=== PATIENT | female | born 1985 | race Caucasian/White ===

== ENCOUNTER 2019-09-05 01:21 | Inpatient (IN) | payer OTHER, SELFPAY ==
[2019-09-05] VITALS (9 sets, daily range): BP systolic 120–138; BP diastolic 66–101; PULSE 80–103; RESP 16–20; TEMP 36.4–36.9; O2SAT 92–100; BMI 17.6
--- NOTE | ~2019-09-05 | XR_ITS ---
EXAMINATION: XR chest 2V DATE: 09/05/2019 03:08 INDICATION: Weakness TECHNIQUE: PA and lateral views of the chest were obtained. COMPARISON: Chest radiograph dated 04/26/2017 FINDINGS: Mild biapical pleural-parenchymal scarring. No new airspace opacities, pulmonary edema, pleural effus ion or pneumothorax. The cardiomediastinal silhouette is normal. Visualized bones and soft tissues ar e unremarkable. IMPRESSION: 1. No acute cardiopulmonary disease. Reviewed, dictated and finalized at location A.
--- NOTE | 2019-09-05 01:30 | ED.RECABL ---
HPI - Recheck/Abnormal Lab/Rx General Chief Complaint: Recheck/Abnormal Lab/Rx Stated Complaint: nausea/weakness Time Seen by Provider: 09/05/19 01:28 Source: patient, RN notes reviewed and old records reviewed Mode of arrival: other Limitations: no limitations History of Present Illness HPI narrative: Pt is a 33 y/o female who presents to the ED with wanting to be re-evaluated. Pt states that she was at [facility] and left AMA because she got into an argument with a nurse. Pt states that she went to [facility] on 09/02/19. Pt was at another hospital before [facility], but she states that she was d/c home. Pt states that she went to [facility] because her mother told her that she did not look well. Pt was admitted for colitis, Methamphetamine usage, and acute bronchitis. Pt left AMA on 09/04/19. Pt had a CT abdomen and pelvis scan that showed colitis, enteritis, and a fatty liver. Pt also had a CPE study done, but the study showed nothing acute other than emphysema. Pt states that she was also tested for the Coronavirus while at [facility]. Pt also reports weakness that began a week ago after overdosing on Meth. Pt was being treated for kidney and liver failure. Pt was prescribed an abx for her diarrhea. Pt states that her LMP was 2.5 months ago d/t the Depo-Provera shot. Pt denies having a PCP. complaint: other (re-evaluation) Initial visit (ago): day(s) (3) Initial visit for: other (overdose) Returns today for: other (re-evaluation) Symptoms since prior visit: no new symptoms Context: other (wanted to be re-evaluated) Associated symptoms: other (diarrhea, weakness) Related Data Allergies Allergy/AdvReac Type Severity Reaction Status Date / Time No Known Allergies Allergy Unknown Unverified 04/26/17 10:11 Review of Systems Review of Systems: All systems reviewed & are unremarkable except as noted in HPI and below Gastrointestinal: Gastrointestinal: Reports diarrhea Neurologic: Reports weakness PMFSH Past Medical History Medical History (Updated 09/05/19 @ 03:47 by Анна Cervantes MD) Overdose Ulcerative colitis Surgical History Surgical History (Updated 09/05/19 @ 02:25 by Ila Calloway) Surgical history unknown Social History Social History (Updated 09/05/19 @ 02:36 by Ila Calloway) Smoking status: Unknown if ever smoked Substance use: current Substance use type: methamphetamine Exam Const: General: no acute distress and alert Orientation/consciousness: patient oriented x3 Eyes: Conjunctivae: conjunctivae normal Pupils: Equal, round and reactive pupils present Chest: Chest palpation & inspection: normal inspection of the chest Cardio: Rate: regular rate Rhythm: regular rhythm Heart sounds: no murmurs GI: Inspection: non-distended GI Palp: No abdominal tenderness and Yes Soft to palpation Auscultation: normal bowel sounds Skin: Other: bruising to left arm Neuro: General: patient oriented x3 and moves all extremities Extrem: General: no pedal edema Psych: Mental Status: mental status grossly normal Affect: normal affect Course Consultations Consultation #1: I have discussed case with Dr Kristian goff who agrees to place in observation. She request patient to be given magnesium 4 g along with the potassium. She also request to continue antibiotics patient was on at [facility] for colitis Date: 09/05/19 Time: 03:42 Vital Signs Vital signs: Vital Signs Temperature 98.4 F 09/05/19 01:24 Pulse Rate 100 09/05/19 01:24 Respiratory Rate 16 09/05/19 01:24 Blood Pressure 132/81 09/05/19 01:24 Pulse Oximetry 100 09/05/19 01:24 Temperature 98.4 F 09/05/19 01:24 Pulse Rate 87 09/05/19 04:37 Respiratory Rate 20 09/05/19 04:37 Blood Pressure 125/87 09/05/19 04:37 Pulse Oximetry 100 09/05/19 04:37 MDM - Recheck/Abnormal Lab/Rx Medical Records Attestation: I reviewed the patient's medical records. Medical records narrative: I reviewed records sent from [facility]
--- NOTE | 2019-09-05 01:47 | PC.NURSE ---
[place] contacted at [facility] and release on information form faxed.
[2019-09-05 02:06] LABS: Basophils Absolute Auto 0.1 K/mm3 (0.0-0.1); Basophils Percent Auto 0.4 % (0.2-1.2); Eosinophils Absolute Auto 0.1 K/mm3 (0-0.3); Hematocrit 33.4 % (37.0-47.0); Hemoglobin 11.4 g/dL (12.0-15.0); Immature Granulocyte Percent A 2.8 % (0-0.5); Lymphocytes Absolute Auto 2.58 K/mm3 (0.9-3.2); Lymphocytes Percent Auto 18.3 % (18.3-44.2); Mean Corpuscular HGB Conc 34.1 g/dl (32-36); Mean Corpuscular Hemoglobin 29.8 pg (26-34); Mean Corpuscular Volume 87.2 fl (80-100); Monocytes Absolute Auto 1.2 K/mm3 (0.1-0.6); Monocytes Percent Auto 8.7 % (2.6-8.5); Neutrophils Absolute Auto 9.7 K/mm3 (1.3-6.7); Neutrophils Percent Auto 68.8 % (45.5-73.1); Platelet Count Result 380 k/mm3 (150-375); Red Blood Count 3.83 M/mm3 (4.2-5.4); Red Cell Distribution Width 13.2 % (11.5-14.5); White Blood Count 14.1 K/mm3 (4.5-10.0)
[2019-09-05 02:18] LABS: Partial Thromboplastin Time 33.4 SECONDS (22.3-36.8); Prothrombin Time 13.1 Seconds (11.1-14.7)
[2019-09-05 02:24] LABS: Ammonia < 9 umol/L (9-30)
[2019-09-05 02:27] LABS: Ethanol < 10 mg/dL (<10); Magnesium 1.6 mg/dL (1.6-2.3)
[2019-09-05 02:30] LABS: Barbiturate Screen Urine Negative (Negative); Benzodiazepines Screen Urine Negative (Negative)
[2019-09-05 02:34] LABS: Cannabinoid Screen Urine Negative (Negative); Cocaine Screen Urine Negative (Negative); Methadone Screen Urine Negative (Negative); Opiate Screen Urine Positive (Negative); Phencyclidine Screen Urine Negative (Negative)
[2019-09-05 02:39] LABS: Alanine Aminotransferase 236 U/L (4-35); Albumin Level 3.3 g/dL (3.5-5.1); Alkaline Phosphatase 82 U/L (38-126); Aspartate Amino Transferase 45 U/L (14-36); Bilirubin,Total 0.2 mg/dL (0.2-1.3); Blood Urea Nitrogen 5 mg/dL (7-17); Calcium 8.8 mg/dL (8.4-10.2); Carbon Dioxide 31 mmol/L (22-30); Chloride 104 mmol/L (98-107); Estimated Glomerular Filt Rate > 60; Glucose 101 mg/dL (65-105); Potassium 2.6 mmol/L (3.4-5.0); Sodium 138 mmol/L (137-145)
--- NOTE | 2019-09-05 02:44 | ECG_ITS ---
Measurements Intervals [place] Rate: 70 P: 61 LA: 133 QRS: -1 QRSD: 107 T: 32 QT: 370 QTc: 400 Interpretive Statements SINUS RHYTHM BORDERLINE T WAVE ABNORMALITY- INFERIOR LEADS BASELINE ARTIFACT- II, III, AVF BORDERLINE ECG Electronically Signed On 09-05-2019 7:22:39 CDT by Tres Max D.O.
[2019-09-05 02:47] LABS: Amphetamine Screen Urine Positive (Negative)
[2019-09-05] MEDS: POTASSIUM CHLORIDE 20 MEQ TABLET 40 MEQ PO (03:01)
[2019-09-05] MEDS: MAGNESIUM SULF 4 GM/WATER100ML 4 GM/100 ML BAG IVPB (04:06)
[2019-09-05] MEDS: metroNIDAZOLE 500 MG/ISO 100ML 500 MG/100 ML BAG 100 MG IVPB (04:12)
--- NOTE | 2019-09-05 04:51 | PC.NURSE ---
This patient, Treva Carcamo, was admitted to 2 Medical Room 253-01. Patient/family oriented to hospital policies and general routines including ID bracelet, bed and alarms, visiting hours, pain management, procedures, bathroom and other care routines, personal items, smoking policy, room service/diet, and visiting hours. Valuables list has been completed. Information on how to activate the Rapid Response Team has been discussed. Patient/Family are encouraged to report perceived risks to care and to ask questions if they do not understand what they are told or what they should do.
[2019-09-05 07:12] LABS: Beta HCG Quantitative < 2.39 mIU/ML
[2019-09-05 08:46] LABS: Basophils Absolute Auto 0.1 K/mm3 (0.0-0.1); Basophils Percent Auto 0.4 % (0.2-1.2); Eosinophils Absolute Auto 0.2 K/mm3 (0-0.3); Eosinophils Percent Auto 1.2 % (0-4.4); Hematocrit 30.9 % (37.0-47.0); Hemoglobin 10.7 g/dL (12.0-15.0); Immature Granulocyte Absolute 0.27 K/mm3 (0.00-0.031); Immature Granulocyte Percent A 2.1 % (0-0.5); Lymphocytes Absolute Auto 2.18 K/mm3 (0.9-3.2); Lymphocytes Percent Auto 16.9 % (18.3-44.2); Mean Corpuscular HGB Conc 34.6 g/dl (32-36); Mean Corpuscular Volume 86.6 fl (80-100); Mean Platelet Volume 8.9 fl (7.4-10.4); Monocytes Absolute Auto 1.1 K/mm3 (0.1-0.6); Monocytes Percent Auto 8.9 % (2.6-8.5); Neutrophils Absolute Auto 9.1 K/mm3 (1.3-6.7); Neutrophils Percent Auto 70.5 % (45.5-73.1); Nucleated Red Blood Cells Perc 0.2 % (0.0-0.2); Platelet Count Result 378 k/mm3 (150-375); Red Blood Count 3.57 M/mm3 (4.2-5.4); White Blood Count 12.9 K/mm3 (4.5-10.0)
[2019-09-05 09:05] LABS: Blood Urea Nitrogen 2 mg/dL (7-17); Calcium 8.1 mg/dL (8.4-10.2); Carbon Dioxide 26 mmol/L (22-30); Chloride 106 mmol/L (98-107); Estimated CRCL calculation 124 ml/min; Estimated Glomerular Filt Rate > 60; Glucose 104 mg/dL (65-105); Magnesium 2.4 mg/dL (1.6-2.3); Potassium 3.4 mmol/L (3.4-5.0); Sodium 136 mmol/L (137-145)
--- NOTE | 2019-09-05 10:06 | PM.SD ---
Same Day Admit/Disch: HPI History of Present Illness Chief complaint: hypokalemia,weakness,colitis Narrative: Treva Carcamo is a 33 year old female with a history of substance abuse and ulcerative colitis, who presented to the ER with complaints of generalized weakness and after her mother told her she appeared pale and did not look very good. The patient was recently at [facility] with symptoms of abdominal pain, nausea, vomiting and diarrhea and was found to have CT abdomen/pelvis findings of colitis involving the entire colon with evidence of nonspecific enteritis and mesenteric adenitis. The patient also had LFT elevations and was found to have hepatomegaly, diffuse fatty liver parenchymal replacement residuals. While there she had a CTA Chest which showed no evidence of PE. The patient left AMA from [facility] on 09/04/2019 with labs showing leukocytosis at 12.4, H&H 10.7/32.1, hypokalemia at 2.9. It does not appear she received any medications upon discharge for her colitis. Today, she reports feeling well. She was feeling slightly weak prior to arrival but denied any abdominal pain, nausea, vomiting, diarrhea, constipation, fever, chills, chest pain, shortness of breath, cough, rhinorrhea, congestion, lightheadedness, dizziness, headache, leg swelling, calf pain, urinary symptoms. Today, she reports severe pain to her bilateral arms from where the IV sites are located. She is feeling well and requesting to leave. She denies any symptoms at all at this time. Code Status: Full Code POA: MotherKayla PCP: None [facility] Past Medical History Medical History Overdose Substance abuse Ulcerative colitis Surgical History Surgical History No significant past surgical history Family History Family History Father Chronic obstructive pulmonary disease Mother Uterine cancer Social History Social History Smoking packs per day: 0.5 Smoking cigarettes per day: 10.0 Years smoked: 16 Smoking pack-years: 8.00 Smoking status: Current every day smoker Tobacco type: cigarettes Alcohol intake: never Substance use: current Substance use type: methamphetamine Living arrangements: alone Additional living arrangements comments: States she is currently living in a motel in [place] alone. Occupation/Education: occupation Additional occupation/education comments: [employer] Gender identity (if verbalized by the patient): Female Spiritual care concerns: No Agree to blood products: Yes Same Day Admit/Disch: Med Pre-admit Medications Home Medications Medication Instructions Recorded Confirmed Type Saccharomyces boulardii [Florastor] 250 mg PO BID 14 Days #28 cap 09/05/19 Rx levofloxacin [Levaquin] 750 mg PO DAILY #10 tablet 09/05/19 Rx metronidazole [Flagyl] 500 mg PO Q8H 10 Days #30 tablet 09/05/19 Rx Exam Narrative: Exam Narrative: General: 33-year-old woman sitting up in bed, anxious. In no acute distress. Skin: Multiple bruises noted to bilateral arms. No jaundice or cyanosis. Good skin turgor. Neck: Full range of motion. Supple. Respiratory: Lungs are clear to auscultation bilaterally. No bony chest wall tenderness. Cardiovascular: The heart has a regular rate and rhythm without murmur. Lower extremities: No lower extremity edema. Distal pulses are easily palpated. No calf tenderness to palpation. Gastrointestinal: The abdomen is soft, nontender and nondistended with active bowel sounds. Psychiatric: Anxious, rapid speech. Neurologic: No focal deficits. Speech is clear. No facial drooping. DS: Data Data Completed and Pending Labs on day of discharge: Labs from last 24 hours 09/05/19 09/05/19 09/05/19
== END 2019-09-05 11:24 | disposition home or self-care (01) | DRG 425 ==
LOC: ANHED 03:47 → ANH2MED 04:08
PROVIDERS: Physician Assistant; Admitting Provider Internal Medicine; Emergency Provider General Practice; Visit Provider Internal Medicine
DX: E87.6 Hypokalemia (principal); K52.9 Noninfective gastroenteritis and colitis, unspecified; K51.90 Ulcerative colitis, unspecified, without complications; J43.9 Emphysema, unspecified; R00.0 Tachycardia, unspecified; F41.9 Anxiety disorder, unspecified; F19.939 Other psychoactive substance use, unspecified with withdrawal, unspecified
CPT/HCPCS: 36415; 71046; 80048; 80053; 80307; 82140; 83735; 84702; 85025; 85610; 85730; 93005; 96365; 96375; 99285; A9270; J1956; J3475; J3480

== ENCOUNTER 2022-05-12 19:46 | Observation (INO) | payer OTHER, SELFPAY ==
[2022-05-12 20:00] VITALS: BP 109/62; PULSE 104
[2022-05-12 20:15] VITALS: BP 105/53; PULSE 110
[2022-05-12 20:30] VITALS: BP 110/66; PULSE 107
[2022-05-12] MEDS: LACTATED RINGERS 1,000 ML 999 ML IV CONT (20:37)
[2022-05-12] MEDS: ONDANSETRON INJ 4 MG/2 ML VIAL IV PUSH (20:38)
[2022-05-12 21:00] LABS: Hematocrit 29.2 % (37.0-47.0); Hemoglobin 9.9 g/dL (12.0-15.0); Mean Corpuscular HGB Conc 33.9 g/dl (32-36); Mean Corpuscular Hemoglobin 29.4 pg (26-34); Mean Corpuscular Volume 86.6 fl (80-100); Platelet Count Result 236 k/mm3 (150-375); Red Blood Count 3.37 M/mm3 (4.2-5.4); Red Cell Distribution Width 12.8 % (11.5-14.5)
[2022-05-12 21:08] LABS: Appearance Urine Cloudy (Clear); Bilirubin Urine Negative (Negative); Blood Urine Trace-intact (Negative); Color Urine Yellow (Yellow); Glucose Urine UA Trace mg/dL (Negative); Ketones Urine Trace mg/dL (Negative); Leukocyte Esterase Ur 2+ LEU/UL (NEGATIVE); Nitrate Urine Negative (Negative); Protein Urine Trace mg/dL (Negative); Specific Grav Ur >= 1.030 (1.001-1.035); Urobilinogen Urine 0.2 mg/dL (<2.0)
[2022-05-12 21:12] LABS: Alanine Aminotransferase 22 U/L (6-35); Albumin Level 3.1 g/dL (3.5-5.1); Alkaline Phosphatase 159 U/L (38-126); Anion Gap 9 mmol/L (8-16); Aspartate Amino Transferase 26 U/L (14-36); Bilirubin,Total 0.1 mg/dL (0.2-1.3); Blood Urea Nitrogen 5 mg/dL (7-17); Calcium 7.8 mg/dL (8.4-10.2); Carbon Dioxide 21 mmol/L (22-30); Chloride 101 mmol/L (98-107); Estimated Glomerular Filt Rate > 60; Glucose 99 mg/dL (65-110); Potassium 3.1 mmol/L (3.4-5.0); Sodium 131 mmol/L (137-145)
[2022-05-12 21:22] LABS: Bacteria Urine 2+ /hpf; Mucus Urine Moderate /lpf; Squamous Epithelial Cell Urine Many /hpf (Few); WBC Urine 51-75 /hpf (0-3)
[2022-05-12 21:25] LABS: Add Urine Microscopic? YES
[2022-05-12 21:42] LABS: Barbiturate Screen Urine Negative (Negative); Benzodiazepines Screen Urine Negative (Negative)
[2022-05-12 22:05] LABS: Opiate Screen Urine Negative (Negative); Phencyclidine Screen Urine Negative (Negative)
[2022-05-12 22:15] LABS: Cannabinoid Screen Urine Negative (Negative); Cocaine Screen Urine Negative (Negative)
[2022-05-12 23:26] LABS: Methadone Screen Urine Negative (Negative)
[2022-05-12 23:42] LABS: Amphetamine Screen Urine Positive (Negative)
--- NOTE | 2022-05-14 07:40 | P.PNOB_ITS ---
OB - Triage/Final Diagnosis Visit Information Comments/Additional reasons for admission: I have assessed the risk for this patient, Treva Carcamo, and determined that she would benefit from observation care. Evaluation Laboratory results: Laboratory Tests 05/12/22 05/12/22 05/12/22 20:30 20:30 20:45 WBC 14.0 H RBC 3.37 L Hgb 9.9 L Hct 29.2 L MCV 86.6 MCH 29.4 MCHC 33.9 RDW 12.8 Plt Count 236 MPV 10.0 Sodium 131 L Potassium 3.1 L Chloride 101 Carbon Dioxide 21 L Anion Gap 9 BUN 5 L Creatinine 0.30 L Estim Creat Clear Calc Not Reportable Estimated GFR > 60 Glucose 99 Calcium 7.8 L Total Bilirubin 0.1 L AST 26 ALT 22 Alkaline Phosphatase 159 H Total Protein 6.0 L Albumin 3.1 L Urine Color Yellow Urine Appearance Cloudy H Urine pH 6.0 Ur Specific [place] >= 1.030 Urine Protein Trace Urine Glucose (UA) Trace H Urine Ketones Trace Ur Blood (Man) Trace-intact Urine Nitrate Negative Urine Bilirubin Negative Urine Urobilinogen 0.2 Ur Leukocyte Esterase 2+ H Urine RBC 11-20 H Urine WBC 51-75 H Ur Squamous Epith Cells Many H Urine Bacteria 2+ H Urine Mucus Moderate H Urine Opiates Screen Urine Methadone Screen Ur Barbiturates Screen Ur Phencyclidine Scrn Ur Amphetamine Screen U Benzodiazepines Scrn Urine Cocaine Screen U Cannabinoids Screen 05/12/22 20:46 WBC RBC Hgb Hct MCV MCH MCHC RDW Plt Count MPV Sodium Potassium Chloride Carbon Dioxide Anion Gap BUN Creatinine Estim Creat Clear Calc Estimated GFR Glucose Calcium Total Bilirubin AST ALT Alkaline Phosphatase Total Protein Albumin Urine Color Urine Appearance Urine pH Ur Specific [place] Urine Protein Urine Glucose (UA) Urine Ketones Ur Blood (Man) Urine Nitrate Urine Bilirubin Urine Urobilinogen Ur Leukocyte Esterase Urine RBC Urine WBC Ur Squamous Epith Cells Urine Bacteria Urine Mucus Urine Opiates Screen Negative Urine Methadone Screen Negative Ur Barbiturates Screen Negative Ur Phencyclidine Scrn Negative Ur Amphetamine Screen Positive A U Benzodiazepines Scrn Negative Urine Cocaine Screen Negative U Cannabinoids Screen Negative Final Diagnosis (1) Substance abuse: Code(s): F19.10 - Other psychoactive substance abuse, uncomplicated Status: Acute (2) UTI in : Code(s): O23.40 - Unspecified infection of urinary tract in , unspecified trimester Status: Acute
== END 2022-05-12 22:00 | disposition home or self-care (01) ==
PROVIDERS: Admitting Provider Obstetrics & Gynecology; Visit Provider Obstetrics & Gynecology
DX: O26.899 Other specified pregnancy related conditions, unspecified trimester (principal); F19.10 Other psychoactive substance abuse, uncomplicated; O23.40 Unspecified infection of urinary tract in pregnancy, unspecified trimester
CPT/HCPCS: 36415; 80053; 80307; 81001; 85027; 96374; G0378; G0379; J2405; J7120

== ENCOUNTER 2022-05-20 19:33 | Inpatient (IN) | payer OTHER, SELFPAY ==
[2022-05-20] VITALS (60 sets, daily range): BP systolic 87–123; BP diastolic 49–85; PULSE 41–135; O2SAT 81–100; BMI 24.5
[2022-05-20] MEDS: AMPICILLIN 2 GM/NS 100 ML 2 GM/100 ML BAG IVPB (20:32)
[2022-05-20] MEDS: LACTATED RINGERS 1,000 ML 999 ML IV CONT (20:32)
[2022-05-20 20:44] LABS: Basophils Percent Auto 0.2 % (0.2-1.2); Eosinophils Absolute Auto 0.1 K/mm3 (0-0.3); Eosinophils Percent Auto 0.5 % (0-4.4); Hematocrit 33.4 % (37.0-47.0); Hemoglobin 11.5 g/dL (12.0-15.0); Immature Granulocyte Absolute 0.09 K/mm3 (0.00-0.031); Immature Granulocyte Percent A 0.6 % (0-0.5); Lymphocytes Absolute Auto 1.94 K/mm3 (0.9-3.2); Lymphocytes Percent Auto 13.5 % (18.3-44.2); Mean Corpuscular HGB Conc 34.4 g/dl (32-36); Mean Corpuscular Hemoglobin 29.9 pg (26-34); Mean Platelet Volume 10.3 fl (7.4-10.4); Monocytes Absolute Auto 0.8 K/mm3 (0.1-0.6); Monocytes Percent Auto 5.3 % (2.6-8.5); Neutrophils Absolute Auto 11.4 K/mm3 (1.3-6.7); Neutrophils Percent Auto 79.9 % (45.5-73.1); Platelet Count Result 302 k/mm3 (150-375); Red Blood Count 3.84 M/mm3 (4.2-5.4); Red Cell Distribution Width 13.1 % (11.5-14.5); White Blood Count 14.3 K/mm3 (4.5-10.0)
--- NOTE | 2022-05-20 20:47 | WPDANESEPP ---
Anes - Eval Pre Procedure Procedure: Labor epidural Date/Time: 05/20/22 20:47 Surgeon: Taya Preop Diagnosis: Abdominal pain with contractions Pre Op Diagnosis: Contractions Patient Data Age: 36 Gender: F Height: Weight: Allergies Allergy/AdvReac Type Severity Reaction Status Date / Time No Known Allergies Allergy Unknown Unverified 04/26/17 10:11 Home Medications Medication Instructions Recorded Confirmed Type Saccharomyces boulardii 250 mg 250 mg PO BID 14 days #28 caps 09/05/19 Rx capsule (Florastor) levofloxacin 750 mg tablet 750 mg PO DAILY #10 tabs 09/05/19 Rx (Levaquin) metronidazole 500 mg tablet 500 mg PO Q8H 10 days #30 tabs 09/05/19 Rx (Flagyl) nitrofurantoin 100 mg PO Q12H 7 days #14 caps 05/12/22 Rx monohydrate/macrocrystals 100 mg capsule (Macrobid) Laboratory Tests 05/20/22 05/20/22 05/20/22 20:34 20:34 20:35 WBC Pending RBC Pending Hgb Pending Hct Pending MCV Pending MCH Pending MCHC Pending RDW Pending Plt Count Pending MPV Pending Immature Gran % (Auto) Pending Neut % (Auto) Pending Lymph % (Auto) Pending [place] % (Auto) Pending Eos % (Auto) Pending Baso % (Auto) Pending Lymph # (Auto) Pending [place] # (Auto) Pending Eos # (Auto) Pending Baso # (Auto) Pending Abs Immat Gran (auto) Pending Absolute Neuts (auto) Pending Absolute Nucleated RBC Pending Nucleated RBC % Pending Sodium Pending Potassium Pending Chloride Pending Carbon Dioxide Pending Anion Gap Pending BUN Pending Creatinine Pending Estim Creat Clear Calc Pending Estimated GFR Pending Glucose Pending Calcium Pending Total Bilirubin Pending AST Pending ALT Pending Alkaline Phosphatase Pending Total Protein Pending Albumin Pending Urine Opiates Screen Urine Methadone Screen Ur Barbiturates Screen Ur Phencyclidine Scrn Ur Amphetamine Screen U Benzodiazepines Scrn Urine Cocaine Screen U Cannabinoids Screen RPR Pending Hep Bs Antigen HIV 1&2 Ab/P24 Ag 4thGn Rubella IgG Antibody 05/20/22 05/20/22 05/20/22 20:35 20:35 20:35 WBC RBC Hgb Hct MCV MCH MCHC RDW Plt Count MPV Immature Gran % (Auto) Neut % (Auto) Lymph % (Auto) [place] % (Auto) Eos % (Auto) Baso % (Auto) Lymph # (Auto) [place] # (Auto) Eos # (Auto) Baso # (Auto) Abs Immat Gran (auto) Absolute Neuts (auto) Absolute Nucleated RBC Nucleated RBC % Sodium Potassium Chloride Carbon Dioxide Anion Gap BUN Creatinine Estim Creat Clear Calc Estimated GFR Glucose Calcium Total Bilirubin AST ALT Alkaline Phosphatase Total Protein Albumin Urine Opiates Screen Pending Urine Methadone Screen Pending Ur Barbiturates Screen Pending Ur Phencyclidine Scrn Pending Ur Amphetamine Screen Pending U Benzodiazepines Scrn Pending Urine Cocaine Screen P
[2022-05-20 20:58] LABS: Alanine Aminotransferase 62 U/L (6-35); Albumin Level 3.3 g/dL (3.5-5.1); Alkaline Phosphatase 259 U/L (38-126); Anion Gap 4 mmol/L (8-16); Aspartate Amino Transferase 65 U/L (14-36); Bilirubin,Total 0.3 mg/dL (0.2-1.3); Blood Urea Nitrogen 6 mg/dL (7-17); Calcium 8.2 mg/dL (8.4-10.2); Carbon Dioxide 24 mmol/L (22-30); Chloride 107 mmol/L (98-107); Estimated Glomerular Filt Rate > 60; Glucose 111 mg/dL (65-110); Potassium 3.2 mmol/L (3.4-5.0); Sodium 135 mmol/L (137-145)
[2022-05-20 21:02] LABS: Barbiturate Screen Urine Negative (Negative); Benzodiazepines Screen Urine Negative (Negative)
[2022-05-20] MEDS: LACTATED RINGERS 1,000 ML 125 ML IV CONT (21:05)
--- NOTE | 2022-05-20 21:11 | LDADM ---
This patient, Treva Carcamo, was admitted to Labor/Delivery/Recovery 105 on 05/20/22 at 19:33. Plans for labor, pain management and were discussed with patient. Patient/family oriented to hospital policies and general routines including ID bracelet, bed and alarms, visiting hours, pain management, procedures, bathroom and other care routines, personal items, smoking policy, room service/diet and guest tray routines, security routines, and visiting hours. Patient/Family are encouraged to report perceived risks to care and to ask questions if they do not understand what they are told or what they should do. See OBIX for further documentation.
[2022-05-20 21:25] LABS: Cannabinoid Screen Urine Negative (Negative); Cocaine Screen Urine Negative (Negative); Methadone Screen Urine Negative (Negative); Opiate Screen Urine Negative (Negative); Phencyclidine Screen Urine Negative (Negative)
[2022-05-20 21:32] LABS: Amphetamine Screen Urine Positive (Negative)
[2022-05-20 21:47] LABS: HIV 1/2 Ab P24 Ag Result Negative (Negative)
[2022-05-20 22:05] LABS: Hepatitis B Surface Antigen Negative (Negative)
[2022-05-20 23:23] LABS: Rubella IgG Antibody > 120.0 IU/ML
[2022-05-21] VITALS (24 sets, daily range): BP systolic 64–166; BP diastolic 48–106; PULSE 66–241; RESP 18–22; TEMP 36.1–36.8; O2SAT 77–100
--- NOTE | 2022-05-21 00:29 | PM.IMHP ---
H&P: HPI History of Present Illness Date/Time: 05/21/22 00:29 Chief Complaint: contractions Narrative: 36 yo A2 here at 33 4/7 wks in active labor. On arrival 5 cm with BBOW. On my arrival . Patient with limited care starting at 23 weeks with provider in [place]. She states she was referred for AMA and 2 vessel cord but did not see specialist yet. Patient states last used narcotics near 23 weeks and last used methamphetamines 2 weeks ago however UDS is + for amphetamines. [facility] Past Medical History Medical History (Updated 05/21/22 @ 00:36 by Aby Bain MD) Anxiety Elective x 2 Methamphetamine abuse No care in current limited late care Substance abuse Ulcerative colitis Vaginal delivery x2 Surgical History Surgical History No significant past surgical history Family History Family History Father Chronic obstructive pulmonary disease Mother Uterine cancer Social History Social History Smoking packs per day: 0.5 Smoking cigarettes per day: 10.0 Years smoked: 16 Smoking pack-years: 8.00 Smoking status: Current every day smoker Tobacco type: cigarettes Second hand tobacco smoke exposure: Yes Alcohol intake: never Substance use: current Substance use type: methamphetamine Lack of Transportation: No Lack of Food: Never True Current Housing: I Have Housing Concerned About Future Housing: No Difficulty Paying Gas/Electric Bills: No Difficulty Paying for Meds: No Currently Unemployed: No Education: Grade School Difficulty w/ Childcare or Family Care: No Additional living arrangements comments: States she is currently living in a motel in [place] alone. Additional occupation/education comments: [employer] Gender identity (if verbalized by the patient): Female Spiritual care concerns: No Agree to blood products: Yes Meds Home Medications and Allergies Home Medications Medication Instructions Recorded Confirmed Type Saccharomyces boulardii 250 mg 250 mg PO BID 14 days #28 caps 09/05/19 Rx capsule (Florastor) levofloxacin 750 mg tablet 750 mg PO DAILY #10 tabs 09/05/19 Rx (Levaquin) metronidazole 500 mg tablet 500 mg PO Q8H 10 days #30 tabs 03/23/20 Rx (Flagyl) nitrofurantoin 100 mg PO Q12H 7 days #14 caps 05/12/22 Rx monohydrate/macrocrystals 100 mg capsule (Macrobid) Allergies Allergy/AdvReac Type Severity Reaction Status Date / Time No Known Allergies Allergy Unknown Unverified 04/26/17 10:11 Vital Signs Vital Signs - 24 hr 05/20/22 20:30 05/20/22 20:54 05/20/22 20:55 Pulse Rate 124 H Blood Pressure 118/83 Pulse Oximetry 93 Oxygen Delivery Room Air 05/20/22 20:58 05/20/22 21:00 05/20/22 21:02 Pulse Rate 109 H 102 H Blood Pressure 116/57 L 123/85 Pulse Oximetry 100 81 L 100 Oxygen Delivery 05/20/22 21:03 05/20/22 21:05 05/20/22 21:07 Pulse Rate 87 93 Blood Pressure 114/69 110/73 Pulse Oximetry 100 Oxygen Delivery 05/20/22 21:08 05/20/22 21:10 05/20/22 21:12 Pulse Rate 99 87 Blood Pressure 116/79 106/73 Pulse Oximetry 100 Oxygen Delivery 05/20/22 21:13 05/20/22 21:15 05/20/22 21:17 Pulse Rate 84 100 Blood Pressure 114/71 108/63 Pulse Oximetry 100 Oxygen Delivery 05/20/22 21:19 05/20/22 21:21 05/20/22 21:22 Pulse Rate 96 85 Blood Pressure 114/70 105/67 Pulse Oximetry 100 Oxygen Delivery 05/20/22 21:23 05/20/22 21:25 05/20/22 21:30 Pulse Rate 85 85 82 Blood Pressure 105/65 105/62 103/63 Pulse Oximetry 100 100 Oxygen Delivery 05/20/22 21:35 05/20/22 21:40 05/20/22 21:43 Pulse Rate Blood Pressure Pulse Oximetry 99 100 94 Oxygen Delivery 05/20/22 21:45 05/20/22 21:48 05/20/22 2
[2022-05-21] MEDS: OXYTOCIN 10 UNITS/ML VIAL (00:35)
--- NOTE | 2022-05-21 00:37 | PM.OBPRVD ---
OB - Delivery Note Procedure Delivery date: 05/21/22 Events: Other (poor care) Induction method: None Delivery monitor: External FHT and External Uterine Route of delivery: Laceration Description: None Specimen: Yes (placenta) Quantitative Blood Loss (ml): 100 Anesthesia type: Epidural Disposition: Floor Baby Date of : 05/21/22 Weeks of gestation at delivery: 33 Infant gender: Male presentation: vertex position: Right Occiput Anterior Placenta delivery description: Manual Removal, Uterine Exploration and Other (u/s ) Cord Vessel Description: 2 Vessels and Other (abnormal insertion with what appeared to be velementous insertion) score one minute: 3 score five minutes: 5 score ten minutes: 7 Narrative: As placenta delivering, cord did not tear but seemed to insert into membranes. Manual removal of the placenta in 2 main pieces with 2 addition small pieces. Bedside u/s post removal showed homogenous.
--- NOTE | 2022-05-21 00:42 | PM.OBDSVD ---
DS: Admitting Diagnosis Discharge Date 05/22/22 Admitting Diagnosis labor IUP 33 09/19 DS: Discharge Diagnosis Discharge Diagnosis (1) labor: Code(s): O60.00 - labor without delivery, unspecified trimester Status: Acute (2) 33 weeks gestation of : Code(s): Z3A.33 - 33 weeks gestation of Status: Acute (3) Methamphetamine abuse: Code(s): F15.10 - Other stimulant abuse, uncomplicated Status: Acute (4) (spontaneous vaginal delivery): Code(s): O80 - Encounter for full-term uncomplicated delivery Status: Acute OB - DS: Summary OB Procedures : Ultrasound OB Procedures Intrapartum: Spontaneous Vag Delivery and Uterine exploration (manual removal of placenta) OB Procedures: : None Peripartum Data Infant Delivery Method: Natural Vaginal Laceration Description: None complications: retained placenta (manual removal) Status at Discharge Functional status at discharge: independent ambulation Overall status at discharge: patient is progressing back to baseline Time Spent with Patient Time attestation: Total time spent providing and/or coordinating discharge services: DS: Data Data Completed and Pending Labs on day of discharge: Labs from last 24 hours 05/20/22 05/20/22 05/20/22 20:35 20:35 20:35 WBC RBC Hgb Hct MCV MCH MCHC RDW Plt Count MPV Immature Gran % (Auto) Neut % (Auto) Lymph % (Auto) [place] % (Auto) Eos % (Auto) Baso % (Auto) Lymph # (Auto) [place] # (Auto) Eos # (Auto) Baso # (Auto) Abs Immat Gran (auto) Absolute Neuts (auto) Absolute Nucleated RBC Nucleated RBC % Sodium Potassium Chloride Carbon Dioxide Anion Gap BUN Creatinine Estim Creat Clear Calc Estimated GFR Glucose Calcium Total Bilirubin AST ALT Alkaline Phosphatase Total Protein Albumin Urine Opiates Screen Negative Urine Methadone Screen Negative Ur Barbiturates Screen Negative Ur Phencyclidine Scrn Negative Ur Amphetamine Screen Positive A U Benzodiazepines Scrn Negative Urine Cocaine Screen Negative U Cannabinoids Screen Negative RPR Hep Bs Antigen Negative HIV 1&2 Ab/P24 Ag 4thGn Rubella IgG Antibody Blood Type O Positive Antibody Screen Negative 05/20/22 05/20/22 05/20/22 20:35 20:35 20:35 WBC 14.3 H RBC 3.84 L Hgb 11.5 L Hct 33.4 L MCV 87.0 MCH 29.9 MCHC 34.4 RDW 13.1 Plt Count 302 MPV 10.3 Immature Gran % (Auto) 0.6 H Neut % (Auto) 79.9 H Lymph % (Auto) 13.[address] [place] % (Auto) 5.3 Eos % (Auto) 0.5 Baso % (Auto) 0.2 Lymph # (Auto) 1.94 [place] # (Auto) 0.8 H Eos # (Auto) 0.1 Baso # (Auto) 0.0 Abs Immat Gran (auto) 0.09 H Absolute Neuts (auto) 11.4 H Absolute Nucleated RBC 0.0 Nucleated RBC % 0.0 Sodium Potassium Chloride Carbon Dioxide Anion Gap BUN Creatinine Estim Creat Clear Calc Estimated GFR Glucose Calcium Total Bilirubin AST ALT Alkaline Phosphatase Total Protein Albumin Urine Opiates Screen Urine Methadone Screen Ur Barbiturates Screen Ur Phencyclidine Scrn Ur Amphetamine Screen U Benzodiazepines Scrn Urine Cocaine Screen U Cannabinoids Screen RPR Hep Bs Antigen HIV 1&2 Ab/P24 Ag 4thGn Negative Rubella IgG Antibody > 120.0 Blood Type Antibody Screen 05/20/22 05/20/22 20:34 20:34 WBC RBC Hgb Hct MCV MCH MCHC RDW Plt Count MPV Immature Gran % (Auto) Neut % (Auto) Lymph % (Auto) [place] % (Auto) Eos % (Auto) Baso % (Auto) Lymph # (Auto) [place] # (Auto) Eos # (Auto) Baso # (Auto) Abs Immat Gran (auto) Absolute Neuts (auto) Absolute Nucleated RBC Nucleated RBC % Sodium 135 L
--- NOTE | 2022-05-21 04:07 | OBPPTRN ---
Patient transferred to post room #285 via W/C. Support person present. Oriented to unit, room, information board, rooming in, admission packet and security measures. Patient verbalizes understanding.
[2022-05-21] MEDS: ACETAMINOPHEN 325 MG TABLET 650 MG PO ×2 (07:38→15:56)
[2022-05-21] MEDS: DOCUSATE SODIUM 100 MG CAPSULE PO ×2 (07:40→15:56)
--- NOTE | 2022-05-21 09:51 | PC.NURSE ---
On 05/21/22, the student, Billy Reeder, provided care and completed [facility] documentation on this patient. I have reviewed the student's documentation and agree with the findings.
[2022-05-21 10:55] LABS: Rapid Plasma Reagin Non-Reactive (NonReactive)
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
[2022-05-21] MEDS: IBUPROFEN 600 MG TABLET PO (20:33)
[2022-05-22 00:05] VITALS: BP 122/80; PULSE 85; RESP 18; TEMP 36.4; O2SAT 99
[2022-05-22] MEDS: ACETAMINOPHEN 325 MG TABLET 650 MG PO (05:51)
--- NOTE | 2022-05-22 07:43 | PM.OBPNVD ---
OB - PN: Subj Subjective Date/time seen: 05/22/22 07:43 Patient comments: no complaints, pain well controlled and other (bleeding minimal) [place] baby status: doing well (transferred) OB - PN: Obj Data Labs 05/20/22 20:35 05/20/22 20:34 Labs: Laboratory Results - last 24 hr 05/20/22 20:34 RPR Non-reactive OB - PN A/P Plan day: 1 Plan: routine care, discharge home and follow up 6 weeks (with her doctor) Time Spent With Patient Time: Total time spent is greater than 50% in coordination of care (as documented) at patient's floor/unit and/or counseling patient: Exam : Bimanual exam- vagina & uterus: other (Uterus firm, nt @U)
[2022-05-22 07:50] VITALS: BP 104/63; PULSE 75; PULSE 85; RESP 18; TEMP 37.7; O2SAT 97; O2SAT 99
[2022-05-22] MEDS: IBUPROFEN 600 MG TABLET PO (08:42)
--- NOTE | 2022-05-22 08:42 | WPDANLDPN2 ---
Anes-Prog Note L&D Date/Time: 05/22/22 08:42 Comfortable throughout: labor and delivery Neuraxial method: epidural Epidural/Spinal procedure site: clean & non-tender Neuro status: Neuro function grossly intact. Cardiovascular status: normal Respiratory status: normal Airway patency: baseline Mental status: baseline Post-Op hydration status: normal Vital Signs: Last Vital Signs Temp 37.7 C H 05/22/22 07:50 Pulse 75 05/22/22 07:50 Resp 18 05/22/22 07:50 BP 104/63 05/22/22 07:50 Pulse Ox 97 05/22/22 07:50 O2 Del Method Room Air 05/22/22 07:50 Pain score (VAS): 2/10 I/O: Intake & Output 05/21/22 05/22/22 05/22/22 23:59 07:59 15:59 Intake Total 240 Balance 240 Post-procedural complaints: none Patient feedback: Patient satisfied with anesthetic care.
[2022-05-22] MEDS: TETANUS,DIPHTHERIA,AC PERTUSSIS ADULT (0.5 ML) BOOSTRIX IM (08:43)
[2022-05-22 09:18] LABS: Hematocrit 31.2 % (37.0-47.0); Hemoglobin 10.6 g/dL (12.0-15.0)
== END 2022-05-22 10:35 | disposition home or self-care (01) | DRG 541 ==
LOC: ANHLDR 20:20 → ANHOB2 05-21 04:25
PROVIDERS: Admitting Provider Obstetrics & Gynecology Gynecology; Visit Provider Obstetrics & Gynecology Gynecology
DX: O60.14X0 Preterm labor third trimester with preterm delivery third trimester, not applicable or unspecified (principal); O99.324 Drug use complicating childbirth; Z37.0 Single live birth; Z3A.33 33 weeks gestation of pregnancy; F15.10 Other stimulant abuse, uncomplicated; O43.123 Velamentous insertion of umbilical cord, third trimester; O99.02 Anemia complicating childbirth; D64.9 Anemia, unspecified
CPT/HCPCS: 36415; 80053; 80307; 85014; 85018; 85025; 86592; 86703; 86762; 86850; 86900; 86901; 87340; 90715; A9270; G0432; J0290; J2590; J7120